=== PATIENT | female | born 1990 | race American Indian/Alaskan Native ===

== ENCOUNTER 2016-10-17 14:08 | Outpatient (CLI) | payer BC ==
--- NOTE | 2016-10-18 19:09 | Magnetic Resonance Report ---
MR scan of the cranium was performed with and without contrast. Pulse sequences included: 1. T1 weighted sagittal and axial images without contrast and T1 axial images with contrast and sagittal reformatted images with contrast 2. T2 weighted axial and coronal images 3. FLAIR axial and sagittal images 4. Diffusion-weighted axial images 5. Apparent diffusion coefficient images Views of the posterior fossa showed a normal craniocervical junction. Cerebellar pontine angles were normal with normal seventh-eighth nerve complexes. Brainstem and cerebellum were normal. The ventricular system showed no dilatation or distortion. Images of the hemispheres showed multiple areas of increased signal adjacent to the ventricles with oval shapes consistent with Pina's fingers. A small right basal ganglia area of increases signal was also seen. Occasional lesions were seen at the remy white junction. Sinuses, pituitary, flow voids in the [place], orbits, and basal ganglia were normal. There are no abnormal areas of enhancement with contrast. Impression: Abnormal MR scan of the cranium with and without contrast multiple white matter lesions This study is consistent with the patient's diagnosis of multiple sclerosis. I compared this with her previous study done in 2015 and no changes are appreciated. The multiple sclerosis appears radiologically stable.
== END 2016-10-17 14:09 | disposition home or self-care (01) ==
LOC: SPVIMAG 14:08
PROVIDERS: ATTEND Specialist
DX: G35 Multiple sclerosis (principal)
CPT/HCPCS: 70553; A9577